=== PATIENT | female | born 1985 | race Caucasian/White ===

== ENCOUNTER → 2017-09-20 | Outpatient (CLI) | payer BC ==
[~2017-09-20] MED LIST: PRENATAL1 TA1 PO
== END ==
LOC: SUN.DIA 12:08
DX: O24.419 Gestational diabetes mellitus in pregnancy, unspecified control (principal); Z3A.00 Weeks of gestation of pregnancy not specified; Z71.3 Dietary counseling and surveillance
CPT/HCPCS: G0108

== ENCOUNTER 2017-11-04 16:38 | Inpatient (IN) | payer BC ==
[2017-11-04] VITALS (7 sets, daily range): BP systolic 107–135; BP diastolic 71–82; PULSE 61–74; TEMP 97.2–98
[~2017-11-04] VITALS: Ht 160 cm; Wt 69.5 kg
[2017-11-04 20:53] LABS: BASO % 0.4 % (0.0-2.0); EOS % 0.4 % (0-4.0); GRAN # 5.2 (1.4-6.5); GRAN % 75.4 % (42.2-75.2); LYMPH # 1.2 (1.2-3.4); LYMPH % 16.6 % (20.0-51.0); MEAN CELL VOLUME 85 fl (80.0-100.0); MEAN CORPUSCULAR HGB CONC 32 g/dl (33.0-37.0); MEAN PLATELET VOLUME 12.7 fl (7.4-10.4); MONO # 0.5 (0.1-0.6); MONO % 6.9 % (1.7-9.3); PLATELET COUNT 197 K/mm3 (130-400); REDCELL DISTRIBUTION WIDTH-CV 13.2 % (11.5-14.5)
[2017-11-04 20:58] LABS: HEMATOCRIT 35.8 % (37.0-47.0); HEMOGLOBIN 11.6 g/dl (12.5-16.0); MEAN CORPUSCULAR HEMOGLOBIN 28 pg (27.0-31.0)
[2017-11-05] VITALS (39 sets, daily range): BP systolic 91–140; BP diastolic 57–87; PULSE 46–78; TEMP 97.5–98.2
[2017-11-05] MEDS ORDERED: IBU600 MG PO (08:33)
[2017-11-05] MEDS ORDERED: PERCOCET 325 MG1 TA2 PO (08:33)
[2017-11-06 00:45] VITALS: BP 111/71; PULSE 73; TEMP 97.6
[2017-11-06 04:45] VITALS: BP 105/70; PULSE 78; TEMP 97.9
[2017-11-06 07:10] VITALS: BP 118/84; PULSE 79; TEMP 98
[2017-11-06 17:15] VITALS: BP 122/84; PULSE 59; TEMP 98.3
[2017-11-06 22:00] VITALS: BP 131/81; PULSE 73; TEMP 98.1
[2017-11-07 08:10] VITALS: BP 115/75; PULSE 74; TEMP 97.8
== END 2017-11-07 10:30 | disposition home or self-care (01) | DRG 775 ==
LOC: LDRO 16:38 → LDR 19:00 → OB 11-05 08:45
PROVIDERS: Obstetrics & Gynecology
PROC: 10E0XZZ Delivery of Products of Conception, External Approach (ICD-10-PCS; principal; 2017-11-04)
PROC: 0UQMXZZ Repair Vulva, External Approach (ICD-10-PCS; 2017-11-04)
DX: O24.420 Gestational diabetes mellitus in childbirth, diet controlled (principal); O71.82 Other specified trauma to perineum and vulva; Z3A.37 37 weeks gestation of pregnancy; Z37.0 Single live birth
CPT/HCPCS: J2405; J2590; J2795; J7120

== ENCOUNTER → 2024-04-11 | Outpatient (CLI) | payer BC ==
[~2024-04-11] MED LIST changes: +IBU600 MG PO; +PERCOCET 325 MG1 TA2 PO
== END ==
LOC: MC.RAD 09:50
DX: Z12.31 Encounter for screening mammogram for malignant neoplasm of breast (principal)